=== PATIENT | female | born 1960 | race Caucasian/White ===

== ENCOUNTER 2016-07-18 10:05 | Emergency (ER) | payer MEDICARE, OTHER ==
[~2016-07-18] VITALS: Ht 165.1 cm; Wt 68.0 kg
[2016-07-18 11:47] LABS: BASO % 0.5 % (0.0-1.0); EOS # 0.2 K/mm3 (0.0-0.50); EOS % 1.9 % (0.0-3.0); LARGE UNSTAINED CELL # 0.1 K/mm3 (0.0-0.4); LARGE UNSTAINED CELL % 0.9 % (0.0-4.0); LYMPH # 1.3 K/mm3 (1.5-4.5); LYMPH % 15.2 % (24.0-44.0); MEAN CORPUSCULAR HEMOGLOBIN 31.3 pg (27.0-33.0); MEAN CORPUSCULAR HGB CONC 33.5 g/dl (32.0-36.5); MEAN CORPUSCULAR VOLUME 93.5 fl (80.0-96.0); MONO # 0.4 K/mm3 (0.0-0.8); MONO % 4.5 % (0.0-5.0); NEUTROPHILS # 6.1 K/mm3 (1.8-7.7); NEUTROPHILS % 76.9 % (36.0-66.0); PLATELET COUNT, AUTOMATED 282 k/mm3 (150-450); RED CELL DISTRIBUTION WIDTH 11.9 % (11.5-14.5); WHITE BLOOD COUNT 7.9 K/mm3 (4.0-10.0)
--- NOTE | 2016-07-18 12:01 | REP ---
Epigastric pain. COMPARISON: 10/08/2014 also without contrast. The lack of intravenous contrast decreases the sensitivity of the exam. The lung bases are clear and unchanged. Limited evaluation of the solid intra-abdominal organs show no gross abnormalities or significant changes from the prior exam. Limited evaluation of the adrenal glands and kidneys show no gross abnormalities or significant changes from the prior exam. There is an unchanged tiny left renal parapelvic cyst. There is no hydronephrosis or hydroureter. There is no nephroureterolithiasis. Seen in the region of the gallbladder neck, there is a radial density, which was not present on the prior exam possibly representing tiny choleliths. Abnormal fatty infiltration is seen surrounding the descending duodenum approaching the duodenal sweep with abnormal duodenal wall thickening. Although the imaged portion of the pancreas appears to be within normal limits, it is difficult to evaluate without intravenous contrast. Overall, it appears to be unchanged from the prior exam. The abdominal aorta and para-aortic regions are unchanged from the prior exam. No free fluid or free air is seen in the abdomen. CT PELVIS: There is no pelvic mass or adenopathy. There is no free pelvic fluid or air. The pelvic bowel loops and their mesenteries are within normal limits. Bone window technique through the examination shows the osseous structures to be stable and intact. IMPRESSION: 1. Findings consistent with duodenitis. Whether or not the duodenitis is secondary to abnormality of the duodenum itself or secondary to pancreatitis of the pancreatic head cannot be ascertained by this noncontrast enhanced exam. I suspect, however, due to the otherwise normal appearing pancreas, the finding is secondary to an inherent duodenal problem. This needs to be correlated clinically with followup. 2. Possible calculi in the gallbladder neck region as described above. Signed by Garth Yoder DO 07/18/2016 01:08 P
--- NOTE | 2016-07-18 12:02 | REP ---
Epigastric pain. COMPARISON: No priors. FINDINGS: The superior mediastinal structures are midline. The cardiac silhouette is unremarkable in size, shape, and position. The diaphragmatic surfaces of the lungs are regular, and the costophrenic angles are clear. The pulmonary singh are clear. The imaged osseous structures are intact. IMPRESSION: There is no acute cardiopulmonary disease. Signed by Garth Yoder DO 07/18/2016 01:08 P
[2016-07-18 12:03] LABS: ALBUMIN 3.5 GM/DL (3.2-5.2); ALBUMIN/GLOBULIN RATIO 0.83 (1.00-1.93); ALKALINE PHOSPHATASE 125 U/L (45-117); ALT/SGPT 13 U/L (12-78); AMYLASE 27 U/L (25-115); ANION GAP 9 MEQ/L (8-16); AST/SGOT 10 U/L (15-37); BILIRUBIN,DIRECT < 0.1 MG/DL (0.0-0.2); BILIRUBIN,TOTAL 0.5 MG/DL (0.2-1.0); BLOOD UREA NITROGEN 12 MG/DL (7-18); CALCIUM LEVEL 9.3 MG/DL (8.5-10.1); CARBON DIOXIDE LEVEL 26 MEQ/L (21-32); CHLORIDE LEVEL 106 MEQ/L (98-107); CREATININE FOR GFR 0.91 MG/DL (0.55-1.02); GLOMERULAR FILTRATION RATE > 60.0 (>51); GLUCOSE, FASTING 104 MG/DL (70-105); POTASSIUM SERUM 4.2 MEQ/L (3.5-5.1); SODIUM LEVEL 141 MEQ/L (136-145); TOTAL PROTEIN 7.7 GM/DL (6.4-8.2)
--- NOTE | 2016-07-18 12:10 | REP ---
Epigastric pain. COMPARISON: 09/27/2014 RIGHT UPPER QUADRANT GALLBLADDER: Multiple ultrasonographic images of the liver show the hepatic parenchymal echo texture to appear unremarkable. There are no focal masses. There is no intrahepatic ductal dilatation. The common bile duct measures approximately 3 mm in its greatest transverse dimension. Multiple ultrasonographic images of the gallbladder show n focal or diffuse gallbladder wall thickening. There are no echogenic foci within the gallbladder lumen, which casts acoustic shadows. There is no pericholecystic edema. . Images of the pancreatic region show no gross abnormality. The imaged portion of the right kidney is unremarkable. IMPRESSION: Unremarkable right upper quadrant ultrasound. Signed by Garth Yoder DO 07/18/2016 01:08 P
[2016-07-18] MEDS ORDERED: CLAR500T PO (13:50)
[2016-07-18] MEDS ORDERED: FLAG500T PO (13:51)
[2016-07-18] MEDS ORDERED: NEXI20CA PO (13:51)
[2016-07-18 14:05] VITALS: BP 126/79
== END 2016-07-18 14:06 | disposition home or self-care (01) ==
LOC: M ED 10:49
DX: K27.9 Peptic ulcer, site unspecified, unspecified as acute or chronic, without hemorrhage or perforation (principal); Z79.899 Other long term (current) drug therapy; Z88.0 Allergy status to penicillin; Z88.5 Allergy status to narcotic agent

== ENCOUNTER → 2016-08-27 | Outpatient (CLI) | payer MEDICARE, OTHER ==
[~2016-08-27] VITALS: Ht 165.1 cm; Wt 70.3 kg
[~2016-08-27] MED LIST: CLAR500T PO; ESOM0.1C PO; FLAG500T PO; HYDR25T PO; LIDOCAINE 2% INJ 100 MG/5 ML SDV (FOR ANES.) As Ordered ONE; NEXI20CA PO; NS 1,000 ML IV SCH; PROPOFOL 200 MG/20 ML VIAL As Ordered ONE; TYLE325T5 PO
--- NOTE | 2016-08-27 08:31 | ROOR ---
Patient Name: Aurea Cox Procedure Date: 08/27/2016 8:14 AM Date of : 1960 Age: 56 Room: [facility] Gender: Female Note Status: Finalized Procedure: Upper GI endoscopy Indications: Abdominal pain in the right upper quadrant Providers: Josue Gamez Jr, MD Referring MD: Gabbi Verdugo Np Requesting Provider: Medicines: Propofol per Anesthesia Complications: No immediate complications. Procedure: Pre-Anesthesia Assessment: - Prior to the procedure, a History and Physical was performed, and patient medications and allergies were reviewed. The patient is competent. The risks and benefits of the procedure and the sedation options and risks were discussed with the patient. All questions were answered and informed consent was obtained. Patient identification and proposed procedure were verified by the physician and the nurse in the pre-procedure area and in the procedure room. Mental Status Examination: alert and oriented. Airway Examination: normal oropharyngeal airway and neck mobility. Respiratory Examination: clear to auscultation. CV Examination: normal. ASA Grade Assessment: II - A patient with mild systemic disease. After reviewing the risks and benefits, the patient was deemed in satisfactory condition to undergo the procedure. The anesthesia plan was to use moderate sedation / analgesia (conscious sedation). Immediately prior to administration of medications, the patient was re-assessed for adequacy to receive sedatives. The heart rate, respiratory rate, oxygen saturations, blood pressure, adequacy of pulmonary ventilation, and response to care were monitored throughout the procedure. The physical status of the patient was re-assessed after the procedure. The Endoscope was introduced through the mouth, and advanced to the second part of duodenum. The upper GI endoscopy was accomplished without difficulty. The patient tolerated the procedure well. Findings: The upper third of the esophagus, middle third of the esophagus and lower third of the esophagus were normal. The cardia, gastric fundus and gastric body were normal. Localized mildly erythematous mucosa without bleeding was found in the gastric antrum. Biopsies were taken with a cold forceps for histology. The duodenal bulb and second portion of the duodenum were normal. A medium diverticulum was found in the first portion of the duodenum. Impression: - Normal upper third of esophagus, middle third of esophagus and lower third of esophagus. - Normal cardia, gastric fundus and gastric body. - Erythematous mucosa in the antrum. Biopsied. - Normal duodenal bulb and second portion of the duodenum. - Duodenal diverticulum. Recommendation: - Discharge patient to home (ambulatory). - Return to my office as previously scheduled. Josue Gamez MD Josue Gamez Jr, MD 08/27/2016 8:30:40 AM This report has been signed electronically. Number of Addenda: 0 Note Initiated On: 08/27/2016 8:14 AM Estimated Blood Loss: Estimated blood loss: none.
[2016-08-27 08:45] VITALS: BP 113/62
== END | disposition home or self-care (01) ==
LOC: M OPP 07:30
PROVIDERS: ATTEND Surgery
DX: R10.13 Epigastric pain (principal); K57.10 Diverticulosis of small intestine without perforation or abscess without bleeding; K31.89 Other diseases of stomach and duodenum; K21.9 Gastro-esophageal reflux disease without esophagitis; E78.5 Hyperlipidemia, unspecified; R55 Syncope and collapse; E23.7 Disorder of pituitary gland, unspecified; K57.92 Diverticulitis of intestine, part unspecified, without perforation or abscess without bleeding; G43.909 Migraine, unspecified, not intractable, without status migrainosus; F32.9 Major depressive disorder, single episode, unspecified; F41.9 Anxiety disorder, unspecified; Z78.0 Asymptomatic menopausal state; R06.83 Snoring; Z88.0 Allergy status to penicillin; Z88.5 Allergy status to narcotic agent; Z88.8 Allergy status to other drugs, medicaments and biological substances; Z79.899 Other long term (current) drug therapy; Z87.891 Personal history of nicotine dependence

== ENCOUNTER → 2018-06-20 | Outpatient (REF) | payer MEDICARE, OTHER ==
[~2018-06-20] MED LIST changes: +HYDR-3363 PO; -HYDR25T PO; -LIDOCAINE 2% INJ 100 MG/5 ML SDV (FOR ANES.) As Ordered ONE; -NS 1,000 ML IV SCH; -PROPOFOL 200 MG/20 ML VIAL As Ordered ONE
== END ==
LOC: M LAB REF 17:23
PROVIDERS: ATTEND Specialist
DX: Z12.4 Encounter for screening for malignant neoplasm of cervix (principal); Z11.51 Encounter for screening for human papillomavirus (HPV)
CPT/HCPCS: 87624; G0123

== ENCOUNTER → 2023-08-17 | Outpatient (REF) | payer MEDICARE, OTHER ==
[~2023-08-17] MED LIST changes: -CLAR500T PO; +CLAR500T97 PO
== END ==
LOC: M PLALAB 14:38
PROVIDERS: ATTEND Specialist
DX: Z12.4 Encounter for screening for malignant neoplasm of cervix (principal)
CPT/HCPCS: 87624; G0123

== ENCOUNTER → 2023-08-17 | Outpatient (CLI) | payer MEDICARE, OTHER | LOC: M WHC 12:31 | PROVIDERS: ATTEND Specialist | DX: Z12.31 Encounter for screening mammogram for malignant neoplasm of breast (principal); R92.323 Mammographic fibroglandular density, bilateral breasts ==